=== PATIENT | male | born 1995 | race Caucasian/White ===

== ENCOUNTER 2020-09-10 20:56 | Emergency (ER) | payer OTHER ==
[2020-09-10 21:10] VITALS: BP 132/81; PULSE 58; TEMP 98.7; BMI 27.3
[2020-09-10] MEDS ORDERED: ONDANSETRON *ODT* 4 MG TABLET ONE (21:29)
[2020-09-10] MEDS ORDERED: ACETAMINOPHEN 500 MG TABLET (FP) PO ONE (21:40)
[2020-09-10] MEDS ORDERED: ONDANSETRON *ODT* 4 MG TABLET SL ONE (21:40)
[2020-09-10] MEDS ORDERED: ACETAMINOPHEN 325 MG TABLET (FP) ONE (21:44)
[2020-09-10] MEDS ORDERED: BISMUTH SUBSALICYLATE 262 MG/15 ML BTL PO ONE (21:55)
[2020-09-10] MEDS ORDERED: FAMOTIDINE 20 MG TABLET PO ONE (21:55)
[2020-09-10] MEDS ORDERED: FAMOTIDINE 20 MG TABLET ONE (22:15)
== END 2020-09-10 23:00 | disposition home or self-care (01) ==
LOC: JER 20:56
DX: R11.2 Nausea with vomiting, unspecified (principal); R51.9 Headache, unspecified
CPT/HCPCS: 99283-25; Q0162

== ENCOUNTER 2021-11-09 15:41 | Emergency (ER) | payer OTHER ==
[2021-11-09 15:59] VITALS: BP 121/71; PULSE 88; RESP 18; TEMP 98.9; BMI 24.3
[2021-11-09] MEDS ORDERED: LACTATED RINGERS SOLUTION 1,000 ML/1,000 ML INFUS.BAG IV SCH (17:00)
== END 2021-11-09 19:02 | disposition home or self-care (01) ==
LOC: JERFT 15:41
DX: E86.0 Dehydration (principal)
CPT/HCPCS: 99283-25

== ENCOUNTER 2022-11-30 23:41 | Emergency (ER) | payer SELFPAY ==
[2022-11-30 23:47] VITALS: BP 129/86; PULSE 80; RESP 20; TEMP 97.6; BMI 24.4
== END 2022-12-01 01:23 | disposition home or self-care (01) ==
LOC: JER 23:41
DX: M25.579 Pain in unspecified ankle and joints of unspecified foot (principal)
CPT/HCPCS: 99282-25

== ENCOUNTER 2023-02-05 19:46 | Emergency (ER) | payer OTHER ==
[2023-02-05 19:55] VITALS: BP 129/85; PULSE 78; RESP 18; TEMP 97.5; BMI 31.3
== END 2023-02-05 23:32 | disposition home or self-care (01) ==
LOC: JERFT 19:46
DX: S49.92XA Unspecified injury of left shoulder and upper arm, initial encounter (principal); M25.511 Pain in right shoulder; X50.9XXA Other and unspecified overexertion or strenuous movements or postures, initial encounter
CPT/HCPCS: 99283-25

== ENCOUNTER 2023-11-30 19:05 | Emergency (ER) | payer OTHER, BC ==
[2023-11-30 19:14] VITALS: BP 130/88; PULSE 90; RESP 18; TEMP 98.7; BMI 32.1
[2023-11-30] MEDS ORDERED: FLUORESCEIN NA 1 EA STRIP ONE ×2 (20:09→20:12)
[2023-11-30] MEDS ORDERED: TETRACAINE 0.5% OPHTH SOLN 2 ML BOTTLE ONE (20:09)
[2023-11-30] MEDS: TETRACAINE 0.5% HCL 0.6ML DROPPER.BOTTLE OU ONE (20:11)
[2023-11-30] MEDS: FLUORESCEIN NA 1 EA STRIP OU ONE (20:11)
[2023-11-30 20:16] LABS: BASO % 0.6 % (0-2.0); EOS % 2.8 % (0-4.5); HEMATOCRIT 42.9 % (35.4-49); HEMOGLOBIN 15.2 GM/dL (11.7-16.9); LYMPH % 22.8 % (8-40); MCH 31.8 pg (25.7-33.7); MCHC 35.5 g/dl (32.0-35.9); MEAN CELL VOLUME 89.8 fl (80-96); MEAN PLT VOLUME 8.2 fl (7.5-11.1); MONO % 7.3 % (3.8-10.2); NEUT % 66.5 % (42.8-82.8); PLATELET COUNT 230 10^3/uL (134-434); RBC 4.78 M/mm3 (4.00-5.60); RDW 12.3 % (11.9-15.9); WHITE BLOOD COUNT 9.3 K/mm3 (4.0-10.0)
[2023-11-30 20:19] LABS: VENOUS BASE EXCESS -5.9 mmol/L (-2-2); VENOUS O2 SATURATION 50.2 % (70-80); VENOUS PCO2 37.7 mmHg (38-52); VENOUS PH 7.329 (7.310-7.410)
[2023-11-30] MEDS ORDERED: ERYTHROMYCIN 0.5% OPHTHALMIC OINTMENT 3.5 GM TUBE ONE (20:25)
[2023-11-30] MEDS: ERYTHROMYCIN 0.5% OPHTHALMIC OINTMENT 3.5 GM TUBE OU STA (20:29)
[2023-11-30 20:40] LABS: POTASSIUM 4.4 mmol/L (3.5-5.1)
[2023-11-30 20:41] LABS: CALCIUM 9.7 mg/dL (8.5-10.1)
[2023-11-30 20:42] LABS: BLOOD UREA NITROGEN 21.3 mg/dL (7-18)
[2023-11-30 20:45] LABS: CREATININE 1.3 mg/dL (0.55-1.3)
== END 2023-11-30 21:01 | disposition home or self-care (01) ==
LOC: JERFT 19:05 → JER 19:05 → JERFT 21:01
DX: S05.02XA Injury of conjunctiva and corneal abrasion without foreign body, left eye, initial encounter (principal); T59.811A Toxic effect of smoke, accidental (unintentional), initial encounter; X02.1XXA Exposure to smoke in controlled fire in building or structure, initial encounter; W22.8XXA Striking against or struck by other objects, initial encounter
CPT/HCPCS: 36415; 71046-TC-FY; 80048; 82803; 85025; 99284-25

== ENCOUNTER 2023-12-09 07:34 | Emergency (ER) | payer BC, OTHER ==
[2023-12-09 07:43] VITALS: BP 142/89; PULSE 72; RESP 18; TEMP 98.4; BMI 32.1
== END 2023-12-09 07:55 | disposition home or self-care (01) ==
LOC: JERFT 07:34 → JER 07:34 → JERFT 07:55
DX: R09.A9 Foreign body sensation, other site (principal)
CPT/HCPCS: 99283-25